=== PATIENT | female | born 1980 | race Caucasian/White ===

== ENCOUNTER 2018-04-05 14:42 | Outpatient (CLI) | payer OTHER ==
[~2018-04-05 14:42] MED LIST: ATIVAN0.5 M1 PO; RESTORIL30 M1 PO; SYNTHROID50 MCG PO
== END 2018-04-05 14:52 | disposition home or self-care (01) ==
LOC: LAB 14:42
DX: D68.9 Coagulation defect, unspecified (principal)

== ENCOUNTER 2018-04-14 09:04 | Inpatient (IN) | payer OTHER ==
[~2018-04-14] VITALS: Ht 160 cm; Wt 65.8 kg
[2018-04-15] MEDS ORDERED: RECTICARE30 GM TOP (08:00)
[2018-04-15] MEDS ORDERED: FLAGYL500MG PO (08:00)
[2018-04-15] MEDS ORDERED: OXYC1TAB9 PO (08:00)
== END 2018-04-15 11:22 | disposition home or self-care (01) | DRG 349 ==
LOC: CIR.AMB 09:04 → O/R 15:51 → SURG 15:57
PROVIDERS: Surgery
PROC: 0UBG7ZZ Excision of Vagina, Via Natural or Artificial Opening (ICD-10-PCS; 2018-04-14)
PROC: 0DBP7ZZ Excision of Rectum, Via Natural or Artificial Opening (ICD-10-PCS; 2018-04-14)
PROC: 0WQN0ZZ Repair Female Perineum, Open Approach (ICD-10-PCS; 2018-04-14)
PROC: 3E0T3BZ Introduction of Anesthetic Agent into Peripheral Nerves and Plexi, Percutaneous Approach (ICD-10-PCS; 2018-04-14)
PROC: 0DQR0ZZ Repair Anal Sphincter, Open Approach (ICD-10-PCS; principal; 2018-04-14 13:30)
DX: N82.3 Fistula of vagina to large intestine (principal)

== ENCOUNTER 2018-04-25 16:44 | Outpatient (CLI) | payer OTHER ==
[~2018-04-25 16:44] MED LIST changes: +FLAGYL500MG PO; +OXYC1TAB9 PO; +RECTICARE30 GM TOP
== END 2018-04-25 17:00 | disposition home or self-care (01) ==
LOC: LAB 16:44
DX: N82.4 Other female intestinal-genital tract fistulae (principal)